=== PATIENT | male | born 1935 | race Caucasian/White ===

== ENCOUNTER 2023-01-14 08:08 | Inpatient (IN) | payer MEDICARE, BC ==
[2023-01-14 08:52] LABS: #Basophils 0.1 thou/uL (0.0-0.2); #Eosinphils 0.1 thou/uL (0.0-0.7); #Monocytes 0.9 thou/uL (0.11-0.59); #Neutrophils 7.8 thou/uL (1.40-6.50); %Basophils 0.6 % (0.0-1.0); %Eosinophils 1.1 % (0.0-10.0); %Lymphocytes 4.8 % (21.0-51.0); %Monocytes 9.6 % (0.0-10.0); %Neutrophils 82.8 % (42.0-75.0); Hemoglobin 12.1 g/dL (14.0-18.0); Mean Corpuscular HGB CONC 33.2 g/dL (32.0-36.0); Mean Corpuscular Hemoglobin 31.8 pg (27.0-31.0); Mean Corpuscular Volume 95.8 fl (78.0-98.0); Mean Platelet Volume 9.2 fL (7.4-10.4); Platelet Count 225 10x3/uL (130-400); Red Blood Cell (RBC) Count 3.81 mill/uL (4.70-6.10); White Blood Cell (WBC) Count 9.4 10x3/uL (4.8-10.8)
[2023-01-14 09:13] LABS: ALT (SGPT) 40 U/L (8-55); AST (SGOT) 24 U/L (5-34); Albumin 3.9 g/dL (3.4-4.8); Alkaline Phosphatase 90 U/L (40-110); Anion Gap 17 mmol/L (10-20); BUN (Urea Nitrogen) 19 mg/dL (8.4-25.7); Calc. Creatinine Clearance 0 mL/min (70-130); Calcium 9.4 mg/dL (7.8-10.44); Carbon Dioxide 26 mmol/L (23-31); Chloride 92 mmol/L (98-107); Estimated GFR 61; Globulin 2.8 g/dL (2.4-3.5); Glucose 167 mg/dL (83-110); Potassium 4.9 mmol/L (3.5-5.1); Protein, Total 6.7 g/dL (5.8-8.1); Sodium 130 mmol/L (136-145)
[2023-01-14] MEDS ORDERED: Furosemide 40 MG/4 ML VIAL ONE (09:35)
[2023-01-14 09:36] LABS: CKMB 3.7 ng/mL (0-6.6)
[2023-01-14] MEDS ORDERED: Aspirin 325 MG TAB ONE ×2 (10:12→10:17)
[2023-01-14 10:34] LABS: Bacteria/HPF None Seen HPF (None Seen); Bilirubin Negative (Negative); Blood, Urine Negative (Negative); CAUTI Indications for Culture Dysuria,urgency,freq; Clarity Clear (Clear); Glucose, Urine (Dipstick) Normal (Negative); Ketone, Urine 10 mg/dL (Negative); Leukocyte Negative Leu/uL (Negative); Nitrite Negative (Negative); Protein, Urine (Dipstick) 10 mg/dL (Neg-Trace); RBC/HPF 0-3 HPF (0-3); Specific Gravity, Urine 1.014 (1.002-1.036); Squamous Epithelial 0-3 HPF (0-3); Urobilinogen Normal mg/dL (Less than 2); WBC/HPF 0-3 HPF (0-3)
[2023-01-14 10:39] LABS: Urine Culture Reflex No No
[2023-01-14] MEDS ORDERED: Acetaminophen 325 MG TAB PO PRN (11:45)
[2023-01-14] MEDS ORDERED: Ondansetron PF 4 MG/2 ML Vial IVP PRN (11:45)
[2023-01-14] MEDS ORDERED: traMADol HCl 50 MG TAB PO PRN (11:45)
[2023-01-14 12:11] VITALS: BMI 33.5
[2023-01-14] MEDS ORDERED: Metoprolol Tartrate 50 MG TAB PO SCH (12:15)
[2023-01-14] MEDS ORDERED: Digoxin 0.5 MG/2 ML AMP SLOW IVP SCH (13:30)
[2023-01-14] MEDS: Furosemide 40 MG/4 ML VIAL SLOW IVP SCH (14:09)
[2023-01-14] MEDS ORDERED: Glucagon 1 MG/ML KIT IM PRN (14:20)
[2023-01-14] MEDS ORDERED: Dextrose 50% Abboject 50 ML SYRINGE SLOW IVP PRN (14:20)
[2023-01-14] MEDS ORDERED: Dextrose 5% in Water 1,000 ML IV PRN (14:20)
[2023-01-14] MEDS: Apixaban 5 MG TAB PO SCH (20:24)
[2023-01-14] MEDS: Metoprolol Tartrate 50 MG TAB PO SCH (20:24)
[2023-01-15] MEDS: Furosemide 40 MG/4 ML VIAL SLOW IVP SCH ×3 (06:00→15:52)
[2023-01-15 08:17] LABS: #Basophils 0.1 thou/uL (0.0-0.2); #Eosinphils 0.2 thou/uL (0.0-0.7); #Neutrophils 5.3 thou/uL (1.40-6.50); %Basophils 0.7 % (0.0-1.0); %Eosinophils 2.6 % (0.0-10.0); %Lymphocytes 8.2 % (21.0-51.0); %Neutrophils 73.4 % (42.0-75.0); Hemoglobin 11.3 g/dL (14.0-18.0); Mean Corpuscular HGB CONC 32.4 g/dL (32.0-36.0); Mean Corpuscular Hemoglobin 32.3 pg (27.0-31.0); Platelet Count 217 10x3/uL (130-400); RBC Distribution Width 14.2 % (11.5-14.5); White Blood Cell (WBC) Count 7.2 10x3/uL (4.8-10.8)
[2023-01-15 08:23] LABS: Mean Corpuscular Volume 99.7 fl (78.0-98.0)
[2023-01-15 08:44] LABS: Anion Gap 15 mmol/L (10-20); BUN (Urea Nitrogen) 19 mg/dL (8.4-25.7); Calc. Creatinine Clearance 76 mL/min (70-130); Carbon Dioxide 30 mmol/L (23-31); Chloride 92 mmol/L (98-107); Estimated GFR 66; Glucose 146 mg/dL (83-110); Potassium 4.1 mmol/L (3.5-5.1); Sodium 133 mmol/L (136-145)
[2023-01-15] MEDS: Digoxin 0.125 MG TAB PO SCH (09:19)
[2023-01-15] MEDS: Apixaban 5 MG TAB PO SCH ×2 (09:19→20:21)
[2023-01-15] MEDS: Metoprolol Tartrate 50 MG TAB PO SCH ×2 (09:19→22:03)
[2023-01-15] MEDS ORDERED: Furosemide 40 MG/4 ML VIAL ONE (10:30)
[2023-01-15] MEDS ORDERED: Midodrine HCl 5 MG TAB PO SCH (10:30)
[2023-01-15] MEDS: HumaLOG 300 UNITS/3 ML VIAL SC PRN (12:33)
[2023-01-15] MEDS: Midodrine HCl 5 MG TAB PO SCH ×2 (15:52→20:21)
[2023-01-15 21:17] LABS: Actual Bicarbonate (HCO3a) 35.3 mEq/L (22-28); Base Excess (BEa) 9.7 mEq/L (-2.0 to +3.0); CO2 Tension 51.9 mmHg (35.0-45.0); Calcium, Ionized (arterial) 1.09 mmol/L (1.12-1.30); Carboxyhemoglobin (COHb) 0.6 gm% (0.0-3.0); Hematocrit-ABG 36 % (42.0-52.0); Hemoglobin (Hb) 12.2 g/dL (14.0-18.0); O2 Tension (PaO2), arterial 77.2 mmHg (> 60.0)
[2023-01-15 21:18] LABS: ALV-art Gradient 107.475 mmHg (0-20); Puncture Site RR
[2023-01-16 03:58] LABS: #Basophils 0.1 thou/uL (0.0-0.2); #Eosinphils 0.2 thou/uL (0.0-0.7); #Monocytes 1.1 thou/uL (0.11-0.59); #Neutrophils 6.3 thou/uL (1.40-6.50); %Basophils 0.7 % (0.0-1.0); %Eosinophils 2.2 % (0.0-10.0); %Lymphocytes 8.5 % (21.0-51.0); %Monocytes 12.9 % (0.0-10.0); %Neutrophils 74.9 % (42.0-75.0); Hemoglobin 11.2 g/dL (14.0-18.0); Mean Corpuscular HGB CONC 33.3 g/dL (32.0-36.0); Mean Corpuscular Hemoglobin 31.7 pg (27.0-31.0); Mean Platelet Volume 10.4 fL (7.4-10.4); Platelet Count 186 10x3/uL (130-400); RBC Distribution Width 14.2 % (11.5-14.5); Red Blood Cell (RBC) Count 3.53 mill/uL (4.70-6.10); White Blood Cell (WBC) Count 8.5 10x3/uL (4.8-10.8)
[2023-01-16 04:08] LABS: Mean Corpuscular Volume 95.2 fl (78.0-98.0)
[2023-01-16 04:23] LABS: Anion Gap 16 mmol/L (10-20); BUN (Urea Nitrogen) 18 mg/dL (8.4-25.7); Calc. Creatinine Clearance 66 mL/min (70-130); Calcium 8.9 mg/dL (7.8-10.44); Carbon Dioxide 30 mmol/L (23-31); Chloride 91 mmol/L (98-107); Estimated GFR 56; Glucose 147 mg/dL (83-110); Potassium 4.2 mmol/L (3.5-5.1); Sodium 133 mmol/L (136-145)
[2023-01-16] MEDS: Furosemide 40 MG/4 ML VIAL SLOW IVP SCH ×2 (05:17→14:49)
[2023-01-16] MEDS: HumaLOG 300 UNITS/3 ML VIAL SC PRN ×3 (07:31→17:03)
[2023-01-16] MEDS: Midodrine HCl 5 MG TAB PO SCH ×3 (07:32→20:21)
[2023-01-16] MEDS: Apixaban 5 MG TAB PO SCH ×2 (07:32→20:21)
[2023-01-16] MEDS: Digoxin 0.125 MG TAB PO SCH (07:32)
[2023-01-16] MEDS ORDERED: Metoprolol Tartrate 5 MG/5 ML VIAL IVP SCH (08:30)
[2023-01-16] MEDS: Metoprolol Tartrate 50 MG TAB PO SCH ×2 (08:43→22:46)
[2023-01-16 10:35] LABS: Actual Bicarbonate (HCO3v) 35.4 mEq/L (22-28); Base Excess 10.1 mEq/L (-2.0 to +3.0); Calcium, Ionized (venous) 1.03 mmol/L (1.16-1.32); Chloride (VBG) 90 mmol/L (98-106); Hematocrit-VBG 37 % (42.0-52.0); Hemoglobin (Hb) 12.7 g/dL (12.6-17.4); Potassium (VBG) 4.05 mmol/L (3.70-5.30); Sodium 131.9 mmol/L (133-146); pH (venous) 7.464 (7.32-7.43)
[2023-01-17] MEDS ORDERED: Metoprolol Tartrate 5 MG/5 ML VIAL IVP SCH ×2 (01:45→05:30)
[2023-01-17] MEDS ORDERED: Metoprolol Tartrate 5 MG/5 ML VIAL ONE (01:45)
[2023-01-17 04:01] LABS: #Basophils 0.1 thou/uL (0.0-0.2); #Eosinphils 0.1 thou/uL (0.0-0.7); #Monocytes 1.3 thou/uL (0.11-0.59); #Neutrophils 7.8 thou/uL (1.40-6.50); %Basophils 0.8 % (0.0-1.0); %Eosinophils 1.2 % (0.0-10.0); %Lymphocytes 6.5 % (21.0-51.0); %Monocytes 12.7 % (0.0-10.0); %Neutrophils 78.1 % (42.0-75.0); Hemoglobin 11.6 g/dL (14.0-18.0); Mean Corpuscular HGB CONC 33.2 g/dL (32.0-36.0); Mean Corpuscular Hemoglobin 32.3 pg (27.0-31.0); Mean Corpuscular Volume 97.2 fl (78.0-98.0); Mean Platelet Volume 10.1 fL (7.4-10.4); Platelet Count 227 10x3/uL (130-400); RBC Distribution Width 14.3 % (11.5-14.5); Red Blood Cell (RBC) Count 3.59 mill/uL (4.70-6.10)
[2023-01-17 04:22] LABS: Anion Gap 19 mmol/L (10-20); BUN (Urea Nitrogen) 19 mg/dL (8.4-25.7); Calc. Creatinine Clearance 70 mL/min (70-130); Calcium 9.1 mg/dL (7.8-10.44); Carbon Dioxide 28 mmol/L (23-31); Chloride 92 mmol/L (98-107); Estimated GFR 62; Glucose 158 mg/dL (83-110); Potassium 3.9 mmol/L (3.5-5.1); Sodium 135 mmol/L (136-145)
[2023-01-17] MEDS: Furosemide 40 MG/4 ML VIAL SLOW IVP SCH ×2 (05:35→13:52)
[2023-01-17 06:39] LABS: Actual Bicarbonate (HCO3v) 30.1 mEq/L (22-28); Calcium, Ionized (venous) 1.01 mmol/L (1.16-1.32); Chloride (VBG) 90 mmol/L (98-106); Hematocrit-VBG 38 % (42.0-52.0); Hemoglobin (Hb) 12.9 g/dL (12.6-17.4); Potassium (VBG) 3.89 mmol/L (3.70-5.30); Sodium 131.2 mmol/L (133-146); pH (venous) 7.477 (7.32-7.43)
[2023-01-17] MEDS: Midodrine HCl 5 MG TAB PO SCH ×3 (08:40→20:24)
[2023-01-17] MEDS: Apixaban 5 MG TAB PO SCH ×2 (08:40→20:25)
[2023-01-17] MEDS: Digoxin 0.125 MG TAB PO SCH (08:40)
[2023-01-17] MEDS: Metoprolol Tartrate 50 MG TAB PO SCH ×2 (08:41→20:25)
[2023-01-18] MEDS: Furosemide 40 MG/4 ML VIAL SLOW IVP SCH ×2 (05:21→13:16)
[2023-01-18 05:34] LABS: #Basophils 0.1 thou/uL (0.0-0.2); #Eosinphils 0.1 thou/uL (0.0-0.7); #Monocytes 1.4 thou/uL (0.11-0.59); #Neutrophils 9.9 thou/uL (1.40-6.50); %Basophils 0.6 % (0.0-1.0); %Lymphocytes 4.3 % (21.0-51.0); %Monocytes 11.4 % (0.0-10.0); %Neutrophils 81.8 % (42.0-75.0); Mean Corpuscular HGB CONC 36.4 g/dL (32.0-36.0); Mean Corpuscular Hemoglobin 37.5 pg (27.0-31.0); Mean Corpuscular Volume 103.1 fl (78.0-98.0); Mean Platelet Volume 10.2 fL (7.4-10.4); Platelet Count 251 10x3/uL (130-400); RBC Distribution Width 15.5 % (11.5-14.5); White Blood Cell (WBC) Count 12.1 10x3/uL (4.8-10.8)
[2023-01-18 05:57] LABS: Anion Gap 16 mmol/L (10-20); BUN (Urea Nitrogen) 21 mg/dL (8.4-25.7); Calc. Creatinine Clearance 67 mL/min (70-130); Calcium 9.2 mg/dL (7.8-10.44); Carbon Dioxide 33 mmol/L (23-31); Chloride 88 mmol/L (98-107); Estimated GFR 60; Glucose 153 mg/dL (83-110); Potassium 3.3 mmol/L (3.5-5.1); Sodium 134 mmol/L (136-145)
[2023-01-18] MEDS ORDERED: Potassium Chloride 20 MEQ TAB PO SCH (08:00)
[2023-01-18] MEDS: Midodrine HCl 5 MG TAB PO SCH ×3 (09:10→20:32)
[2023-01-18] MEDS: Digoxin 0.125 MG TAB PO SCH (09:10)
[2023-01-18] MEDS: Metoprolol Tartrate 50 MG TAB PO SCH ×2 (09:10→20:31)
[2023-01-18] MEDS ORDERED: dilTIAZem CD 180 MG CAP PO SCH (12:45)
[2023-01-18] MEDS: Apixaban 5 MG TAB PO SCH ×2 (13:21→20:32)
[2023-01-18] MEDS: cefTRIAXone\\ROCEPHIN 1 GM in Sodium Chloride 0.9% 100 ML IVPB SCH (20:24)
[2023-01-19 04:01] LABS: #Basophils 0.1 thou/uL (0.0-0.2); #Eosinphils 0.1 thou/uL (0.0-0.7); #Monocytes 1.5 thou/uL (0.11-0.59); #Neutrophils 12.1 thou/uL (1.40-6.50); %Basophils 0.4 % (0.0-1.0); %Eosinophils 0.5 % (0.0-10.0); %Lymphocytes 3.6 % (21.0-51.0); %Monocytes 10.1 % (0.0-10.0); %Neutrophils 84.6 % (42.0-75.0); Hemoglobin 12.2 g/dL (14.0-18.0); Mean Corpuscular HGB CONC 32.4 g/dL (32.0-36.0); Mean Platelet Volume 9.9 fL (7.4-10.4); Platelet Count 255 10x3/uL (130-400); RBC Distribution Width 14.6 % (11.5-14.5); Red Blood Cell (RBC) Count 3.81 mill/uL (4.70-6.10); White Blood Cell (WBC) Count 14.3 10x3/uL (4.8-10.8)
[2023-01-19 04:33] LABS: Anion Gap 18 mmol/L (10-20); BUN (Urea Nitrogen) 21 mg/dL (8.4-25.7); Calc. Creatinine Clearance 75 mL/min (70-130); Calcium 9.2 mg/dL (7.8-10.44); Carbon Dioxide 32 mmol/L (23-31); Chloride 91 mmol/L (98-107); Digoxin 0.82 ng/mL (0.8-2.0); Estimated GFR 69; Glucose 154 mg/dL (83-110); Potassium 3.5 mmol/L (3.5-5.1); Sodium 137 mmol/L (136-145)
[2023-01-19] MEDS: Furosemide 40 MG/4 ML VIAL SLOW IVP SCH (05:48)
[2023-01-19] MEDS: Metoprolol Tartrate 50 MG TAB PO SCH ×2 (09:12→21:11)
[2023-01-19] MEDS: dilTIAZem CD 180 MG CAP PO SCH (09:12)
[2023-01-19] MEDS: Digoxin 0.125 MG TAB PO SCH (09:12)
[2023-01-19] MEDS: Midodrine HCl 5 MG TAB PO SCH ×3 (09:13→21:11)
[2023-01-19] MEDS: Apixaban 5 MG TAB PO SCH ×2 (09:13→21:11)
[2023-01-19 10:16] LABS: Actual Bicarbonate (HCO3v) 35.6 mEq/L (22-28); Base Excess 9.7 mEq/L (-2.0 to +3.0); Chloride (VBG) 89 mmol/L (98-106); Hematocrit-VBG 38 % (42.0-52.0); Hemoglobin (Hb) 12.8 g/dL (12.6-17.4); Potassium (VBG) 3.59 mmol/L (3.70-5.30); Sodium 131.5 mmol/L (133-146)
[2023-01-19] MEDS: Furosemide 40 MG TAB PO SCH (14:30)
[2023-01-19] MEDS: cefTRIAXone\\ROCEPHIN 1 GM in Sodium Chloride 0.9% 100 ML IVPB SCH (21:07)
[2023-01-20 04:19] LABS: Actual Bicarbonate (HCO3v) 33.1 mEq/L (22-28); Base Excess 7.1 mEq/L (-2.0 to +3.0); Calcium, Ionized (venous) 1.02 mmol/L (1.16-1.32); Chloride (VBG) 88 mmol/L (98-106); Hematocrit-VBG 39 % (42.0-52.0); Hemoglobin (Hb) 13.2 g/dL (12.6-17.4); Sodium 131.3 mmol/L (133-146); pH (venous) 7.418 (7.32-7.43)
[2023-01-20 04:26] LABS: #Basophils 0.1 thou/uL (0.0-0.2); #Eosinphils 0.1 thou/uL (0.0-0.7); #Monocytes 1.4 thou/uL (0.11-0.59); #Neutrophils 10.5 thou/uL (1.40-6.50); %Basophils 0.4 % (0.0-1.0); %Eosinophils 0.7 % (0.0-10.0); %Lymphocytes 3.8 % (21.0-51.0); %Monocytes 10.8 % (0.0-10.0); %Neutrophils 83.7 % (42.0-75.0); Hemoglobin 11.9 g/dL (14.0-18.0); Mean Corpuscular HGB CONC 32.8 g/dL (32.0-36.0); Mean Corpuscular Hemoglobin 32.3 pg (27.0-31.0); Mean Corpuscular Volume 98.6 fl (78.0-98.0); Mean Platelet Volume 10.2 fL (7.4-10.4); Platelet Count 262 10x3/uL (130-400); RBC Distribution Width 14.6 % (11.5-14.5); Red Blood Cell (RBC) Count 3.68 mill/uL (4.70-6.10); White Blood Cell (WBC) Count 12.5 10x3/uL (4.8-10.8)
[2023-01-20 04:51] LABS: Anion Gap 16 mmol/L (10-20); BUN (Urea Nitrogen) 27 mg/dL (8.4-25.7); Calc. Creatinine Clearance 58 mL/min (70-130); Carbon Dioxide 33 mmol/L (23-31); Chloride 90 mmol/L (98-107); Estimated GFR 51; Glucose 178 mg/dL (83-110); Potassium 3.5 mmol/L (3.5-5.1); Sodium 135 mmol/L (136-145)
[2023-01-20] MEDS: Digoxin 0.125 MG TAB PO SCH (09:25)
[2023-01-20] MEDS: Furosemide 40 MG TAB PO SCH ×2 (09:25→15:17)
[2023-01-20] MEDS: dilTIAZem CD 180 MG CAP PO SCH (09:25)
[2023-01-20] MEDS: Metoprolol Tartrate 50 MG TAB PO SCH ×2 (09:25→20:53)
[2023-01-20] MEDS: Midodrine HCl 5 MG TAB PO SCH ×3 (09:25→20:51)
[2023-01-20] MEDS: Apixaban 5 MG TAB PO SCH ×2 (09:25→20:51)
[2023-01-20] MEDS: cefTRIAXone\\ROCEPHIN 1 GM in Sodium Chloride 0.9% 100 ML IVPB SCH (20:50)
[2023-01-21] MEDS: HumaLOG 300 UNITS/3 ML VIAL SC PRN ×2 (07:15→16:50)
[2023-01-21 07:37] LABS: #Basophils 0.1 thou/uL (0.0-0.2); #Eosinphils 0.1 thou/uL (0.0-0.7); #Monocytes 0.8 thou/uL (0.11-0.59); #Neutrophils 6.3 thou/uL (1.40-6.50); %Basophils 0.7 % (0.0-1.0); %Eosinophils 1.7 % (0.0-10.0); %Lymphocytes 7.3 % (21.0-51.0); %Monocytes 10.4 % (0.0-10.0); Hemoglobin 10.8 g/dL (14.0-18.0); Mean Corpuscular HGB CONC 33.9 g/dL (32.0-36.0); Mean Corpuscular Hemoglobin 33.6 pg (27.0-31.0); Mean Corpuscular Volume 99.4 fl (78.0-98.0); Mean Platelet Volume 10.1 fL (7.4-10.4); Platelet Count 246 10x3/uL (130-400); RBC Distribution Width 14.6 % (11.5-14.5); Red Blood Cell (RBC) Count 3.21 mill/uL (4.70-6.10)
[2023-01-21 08:03] LABS: Anion Gap 16 mmol/L (10-20); BUN (Urea Nitrogen) 31 mg/dL (8.4-25.7); Calc. Creatinine Clearance 72 mL/min (70-130); Calcium 8.6 mg/dL (7.8-10.44); Carbon Dioxide 29 mmol/L (23-31); Chloride 88 mmol/L (98-107); Estimated GFR 64; Glucose 179 mg/dL (83-110); Potassium 3.1 mmol/L (3.5-5.1); Sodium 130 mmol/L (136-145)
[2023-01-21] MEDS: dilTIAZem CD 180 MG CAP PO SCH (09:38)
[2023-01-21] MEDS: Midodrine HCl 5 MG TAB PO SCH ×3 (09:38→20:13)
[2023-01-21] MEDS: Apixaban 5 MG TAB PO SCH ×2 (09:38→20:13)
[2023-01-21] MEDS: Digoxin 0.125 MG TAB PO SCH (09:38)
[2023-01-21] MEDS: Metoprolol Tartrate 50 MG TAB PO SCH ×2 (09:38→20:13)
[2023-01-21] MEDS: Furosemide 40 MG TAB PO SCH ×2 (09:38→14:00)
[2023-01-21] MEDS ORDERED: Potassium Bicarbonate/Cit Ac 20 MEQ TAB PO SCH (13:45)
[2023-01-21] MEDS: cefTRIAXone\\ROCEPHIN 1 GM in Sodium Chloride 0.9% 100 ML IVPB SCH (20:13)
[2023-01-22] MEDS: HumaLOG 300 UNITS/3 ML VIAL SC PRN ×5 (00:08→23:32)
[2023-01-22 04:10] LABS: #Basophils 0.1 thou/uL (0.0-0.2); #Eosinphils 0.2 thou/uL (0.0-0.7); #Monocytes 0.9 thou/uL (0.11-0.59); #Neutrophils 5.9 thou/uL (1.40-6.50); %Basophils 0.6 % (0.0-1.0); %Eosinophils 2.2 % (0.0-10.0); %Lymphocytes 7.8 % (21.0-51.0); %Monocytes 11.8 % (0.0-10.0); %Neutrophils 76.8 % (42.0-75.0); Hemoglobin 10.9 g/dL (14.0-18.0); Mean Corpuscular HGB CONC 33.9 g/dL (32.0-36.0); Mean Corpuscular Hemoglobin 32.2 pg (27.0-31.0); Platelet Count 255 10x3/uL (130-400); RBC Distribution Width 14.6 % (11.5-14.5); Red Blood Cell (RBC) Count 3.38 mill/uL (4.70-6.10); White Blood Cell (WBC) Count 7.7 10x3/uL (4.8-10.8)
[2023-01-22 04:32] LABS: Anion Gap 15 mmol/L (10-20); BUN (Urea Nitrogen) 28 mg/dL (8.4-25.7); Calc. Creatinine Clearance 74 mL/min (70-130); Calcium 8.7 mg/dL (7.8-10.44); Carbon Dioxide 30 mmol/L (23-31); Chloride 92 mmol/L (98-107); Estimated GFR 67; Glucose 184 mg/dL (83-110); Potassium 3.6 mmol/L (3.5-5.1); Sodium 133 mmol/L (136-145)
[2023-01-22 04:50] LABS: Mean Corpuscular Volume 95.3 fl (78.0-98.0)
[2023-01-22] MEDS ORDERED: Furosemide 40 MG TAB PO SCH ×4 (08:30→14:00)
[2023-01-22] MEDS ORDERED: Potassium Chloride 10 MEQ TAB PO SCH (08:30)
[2023-01-22] MEDS: Digoxin 0.125 MG TAB PO SCH (08:39)
[2023-01-22] MEDS: Metoprolol Tartrate 50 MG TAB PO SCH ×2 (08:39→20:08)
[2023-01-22] MEDS: Apixaban 5 MG TAB PO SCH ×2 (08:39→20:05)
[2023-01-22] MEDS: Midodrine HCl 5 MG TAB PO SCH ×3 (08:39→20:08)
[2023-01-22] MEDS: dilTIAZem CD 180 MG CAP PO SCH (08:39)
[2023-01-22] MEDS: Potassium Chloride 10 MEQ TAB PO SCH (17:12)
[2023-01-22] MEDS: cefTRIAXone\\ROCEPHIN 1 GM in Sodium Chloride 0.9% 100 ML IVPB SCH (20:05)
[2023-01-23 04:38] LABS: Anion Gap 18 mmol/L (10-20); BUN (Urea Nitrogen) 24 mg/dL (8.4-25.7); Calc. Creatinine Clearance 75 mL/min (70-130); Calcium 8.6 mg/dL (7.8-10.44); Carbon Dioxide 29 mmol/L (23-31); Chloride 90 mmol/L (98-107); Estimated GFR 67; Glucose 157 mg/dL (83-110); Potassium 3.7 mmol/L (3.5-5.1); Sodium 133 mmol/L (136-145)
[2023-01-23 05:32] LABS: #Basophils 0.1 thou/uL (0.0-0.2); #Eosinphils 0.2 thou/uL (0.0-0.7); #Monocytes 0.9 thou/uL (0.11-0.59); #Neutrophils 5.6 thou/uL (1.40-6.50); %Basophils 0.8 % (0.0-1.0); %Eosinophils 3.2 % (0.0-10.0); %Lymphocytes 9.7 % (21.0-51.0); %Neutrophils 73.1 % (42.0-75.0); Hemoglobin 10.8 g/dL (14.0-18.0); Mean Corpuscular HGB CONC 33.2 g/dL (32.0-36.0); Mean Corpuscular Hemoglobin 31.9 pg (27.0-31.0); Mean Corpuscular Volume 95.9 fl (78.0-98.0); Mean Platelet Volume 10.2 fL (7.4-10.4); Platelet Count 240 10x3/uL (130-400); RBC Distribution Width 14.7 % (11.5-14.5); Red Blood Cell (RBC) Count 3.39 mill/uL (4.70-6.10); White Blood Cell (WBC) Count 7.6 10x3/uL (4.8-10.8)
[2023-01-23] MEDS: HumaLOG 300 UNITS/3 ML VIAL SC PRN ×3 (06:25→20:36)
[2023-01-23] MEDS ORDERED: Furosemide 80 MG TAB PO SCH (07:30)
[2023-01-23] MEDS: Apixaban 5 MG TAB PO SCH ×2 (08:49→20:33)
[2023-01-23] MEDS: Metoprolol Tartrate 25 MG TAB PO SCH ×2 (08:49→20:33)
[2023-01-23] MEDS: Midodrine HCl 5 MG TAB PO SCH ×3 (08:49→20:33)
[2023-01-23] MEDS: Digoxin 0.125 MG TAB PO SCH (08:49)
[2023-01-23] MEDS: Potassium Chloride 10 MEQ TAB PO SCH ×2 (08:49→14:22)
[2023-01-23] MEDS ORDERED: Torsemide 20 MG TAB PO SCH (14:00)
[2023-01-23] MEDS ORDERED: Ketorolac Tromethamine 30 MG/ML VIAL IVP SCH (15:15)
[2023-01-23] MEDS: cefTRIAXone\\ROCEPHIN 1 GM in Sodium Chloride 0.9% 100 ML IVPB SCH (20:33)
[2023-01-24] MEDS: HumaLOG 300 UNITS/3 ML VIAL SC PRN ×2 (06:26→21:22)
[2023-01-24 07:06] LABS: #Basophils 0.1 thou/uL (0.0-0.2); #Eosinphils 0.4 thou/uL (0.0-0.7); #Monocytes 0.8 thou/uL (0.11-0.59); #Neutrophils 5.8 thou/uL (1.40-6.50); %Basophils 1.2 % (0.0-1.0); %Eosinophils 4.7 % (0.0-10.0); %Lymphocytes 7.4 % (21.0-51.0); %Neutrophils 75.9 % (42.0-75.0); Hemoglobin 10.8 g/dL (14.0-18.0); Mean Corpuscular HGB CONC 32.9 g/dL (32.0-36.0); Mean Corpuscular Hemoglobin 31.8 pg (27.0-31.0); Mean Corpuscular Volume 96.5 fl (78.0-98.0); Mean Platelet Volume 9.8 fL (7.4-10.4); Platelet Count 227 10x3/uL (130-400); RBC Distribution Width 14.7 % (11.5-14.5); White Blood Cell (WBC) Count 7.6 10x3/uL (4.8-10.8)
[2023-01-24 07:27] LABS: Anion Gap 12 mmol/L (10-20); BUN (Urea Nitrogen) 21 mg/dL (8.4-25.7); Calc. Creatinine Clearance 80 mL/min (70-130); Calcium 8.7 mg/dL (7.8-10.44); Carbon Dioxide 34 mmol/L (23-31); Chloride 90 mmol/L (98-107); Estimated GFR 74; Glucose 174 mg/dL (83-110); Potassium 3.8 mmol/L (3.5-5.1); Sodium 132 mmol/L (136-145)
[2023-01-24] MEDS: Digoxin 0.125 MG TAB PO SCH (08:41)
[2023-01-24] MEDS: Potassium Chloride 10 MEQ TAB PO SCH ×2 (08:41→15:33)
[2023-01-24] MEDS: Torsemide 20 MG TAB PO SCH ×2 (08:41→15:33)
[2023-01-24] MEDS: Metoprolol Tartrate 25 MG TAB PO SCH ×2 (08:41→21:09)
[2023-01-24] MEDS: Apixaban 5 MG TAB PO SCH ×2 (08:41→21:09)
[2023-01-24] MEDS: Midodrine HCl 5 MG TAB PO SCH ×3 (08:41→21:09)
[2023-01-24] MEDS: cefTRIAXone\\ROCEPHIN 1 GM in Sodium Chloride 0.9% 100 ML IVPB SCH (21:09)
[2023-01-25 04:18] LABS: Anion Gap 15 mmol/L (10-20); BUN (Urea Nitrogen) 22 mg/dL (8.4-25.7); Calc. Creatinine Clearance 72 mL/min (70-130); Calcium 8.8 mg/dL (7.8-10.44); Carbon Dioxide 31 mmol/L (23-31); Chloride 92 mmol/L (98-107); Estimated GFR 65; Glucose 171 mg/dL (83-110); Potassium 4.1 mmol/L (3.5-5.1); Sodium 134 mmol/L (136-145)
[2023-01-25 04:27] LABS: #Basophils 0.1 thou/uL (0.0-0.2); #Eosinphils 0.4 thou/uL (0.0-0.7); #Monocytes 0.9 thou/uL (0.11-0.59); #Neutrophils 6.1 thou/uL (1.40-6.50); %Basophils 0.9 % (0.0-1.0); %Eosinophils 4.9 % (0.0-10.0); %Lymphocytes 7.8 % (21.0-51.0); %Monocytes 10.7 % (0.0-10.0); %Neutrophils 74.7 % (42.0-75.0); Mean Corpuscular HGB CONC 32.4 g/dL (32.0-36.0); Mean Corpuscular Hemoglobin 31.4 pg (27.0-31.0); Mean Corpuscular Volume 96.9 fl (78.0-98.0); Mean Platelet Volume 9.9 fL (7.4-10.4); Platelet Count 249 10x3/uL (130-400); RBC Distribution Width 14.9 % (11.5-14.5); White Blood Cell (WBC) Count 8.2 10x3/uL (4.8-10.8)
[2023-01-25] MEDS: Midodrine HCl 5 MG TAB PO SCH ×3 (09:15→20:47)
[2023-01-25] MEDS: Apixaban 5 MG TAB PO SCH ×2 (09:15→20:47)
[2023-01-25] MEDS: Digoxin 0.125 MG TAB PO SCH (09:15)
[2023-01-25] MEDS: Potassium Chloride 10 MEQ TAB PO SCH ×2 (09:16→17:06)
[2023-01-25] MEDS: Torsemide 20 MG TAB PO SCH ×2 (09:16→17:06)
[2023-01-25] MEDS: Metoprolol Tartrate 25 MG TAB PO SCH ×2 (09:16→20:47)
[2023-01-25] MEDS: HumaLOG 300 UNITS/3 ML VIAL SC PRN ×2 (12:41→17:07)
[2023-01-25 13:31] VITALS: BP 126/64
[2023-01-25] MEDS ORDERED: HumaLOG 300 UNITS/3 ML VIAL SC PRN (19:59)
[2023-01-26 03:59] LABS: #Basophils 0.1 thou/uL (0.0-0.2); #Eosinphils 0.5 thou/uL (0.0-0.7); #Neutrophils 6.9 thou/uL (1.40-6.50); %Eosinophils 5.2 % (0.0-10.0); %Lymphocytes 7.9 % (21.0-51.0); %Monocytes 10.7 % (0.0-10.0); %Neutrophils 74.2 % (42.0-75.0); Hemoglobin 11.8 g/dL (14.0-18.0); Mean Corpuscular HGB CONC 32.5 g/dL (32.0-36.0); Mean Corpuscular Hemoglobin 31.6 pg (27.0-31.0); Mean Corpuscular Volume 97.1 fl (78.0-98.0); Mean Platelet Volume 9.8 fL (7.4-10.4); Platelet Count 250 10x3/uL (130-400); RBC Distribution Width 14.9 % (11.5-14.5); Red Blood Cell (RBC) Count 3.74 mill/uL (4.70-6.10); White Blood Cell (WBC) Count 9.3 10x3/uL (4.8-10.8)
[2023-01-26 04:26] LABS: Anion Gap 16 mmol/L (10-20); BUN (Urea Nitrogen) 18 mg/dL (8.4-25.7); Calc. Creatinine Clearance 76 mL/min (70-130); Calcium 9.2 mg/dL (7.8-10.44); Carbon Dioxide 30 mmol/L (23-31); Chloride 92 mmol/L (98-107); Estimated GFR 69; Glucose 143 mg/dL (83-110); Potassium 4.2 mmol/L (3.5-5.1); Sodium 134 mmol/L (136-145)
[2023-01-26] MEDS: Metoprolol Tartrate 25 MG TAB PO SCH (09:11)
[2023-01-26] MEDS: Digoxin 0.125 MG TAB PO SCH (09:11)
[2023-01-26] MEDS: Potassium Chloride 10 MEQ TAB PO SCH (09:12)
[2023-01-26] MEDS: Apixaban 5 MG TAB PO SCH (09:12)
[2023-01-26] MEDS: Midodrine HCl 5 MG TAB PO SCH ×2 (09:12→14:50)
[2023-01-26] MEDS: Torsemide 20 MG TAB PO SCH ×2 (09:12→14:50)
[2023-01-26] MEDS: HumaLOG 300 UNITS/3 ML VIAL SC PRN (11:54)
[2023-01-26 14:59] VITALS: TEMP 98
== END 2023-01-26 17:15 | disposition swing bed (61) | DRG 291 ==
LOC: ERS 08:08 → IMCU/EMU 09:58 → 2NO 01-17 16:45 → IMCU/EMU 01-18 17:06
PROVIDERS: ADMIT Internal Medicine; ATTEND Internal Medicine
PROC: 4A033R1 Measurement of Arterial Saturation, Peripheral, Percutaneous Approach (ICD-10-PCS; principal; 2023-01-14)
PROC: 5A09457 Assistance with Respiratory Ventilation, 24-96 Consecutive Hours, Continuous Positive Airway Pressure (ICD-10-PCS; 2023-01-14)
DX: I11.0 Hypertensive heart disease with heart failure (principal); I50.43 Acute on chronic combined systolic (congestive) and diastolic (congestive) heart failure; J96.21 Acute and chronic respiratory failure with hypoxia; J96.22 Acute and chronic respiratory failure with hypercapnia; L03.115 Cellulitis of right lower limb; I48.19 Other persistent atrial fibrillation; Z66 Do not resuscitate; E11.42 Type 2 diabetes mellitus with diabetic polyneuropathy; E78.5 Hyperlipidemia, unspecified; N40.0 Benign prostatic hyperplasia without lower urinary tract symptoms; M62.81 Muscle weakness (generalized); E83.42 Hypomagnesemia; K59.00 Constipation, unspecified; R26.81 Unsteadiness on feet; J98.6 Disorders of diaphragm; I95.9 Hypotension, unspecified; F03.90 Unspecified dementia, unspecified severity, without behavioral disturbance, psychotic disturbance, mood disturbance, and anxiety; G47.33 Obstructive sleep apnea (adult) (pediatric); Z98.890 Other specified postprocedural states; Z88.5 Allergy status to narcotic agent; Z79.01 Long term (current) use of anticoagulants; Z79.899 Other long term (current) drug therapy; R53.81 Other malaise; E87.6 Hypokalemia
CPT/HCPCS: 36415; 36416; 71045; 80048; 80053; 80162; 81001; 82553; 82805; 83880; 84484; 85025; 93005; 93306; 94660; 94760; 96374; J0696; J1160; J1815; J1940; J3490